=== PATIENT | female | born 1975 | race Caucasian/White ===

== ENCOUNTER 2020-08-12 10:55 | Emergency (ER) | payer OTHER ==
[2020-08-12] MEDS ORDERED: PERCOCET 5/325 T1 EA PO (14:44)
[2020-08-12 17:03] LABS: HEMOGLOBIN 16.3 gm/dl (12.3-15.3); RED BLOOD COUNT 5.43 M/UL (4.00-5.10); WHITE BLOOD COUNT 15.8 K/UL (4.5-11.0)
[2020-08-12 17:41] LABS: BUN/CREATININE RATIO 20 (0-10)
== END 2020-08-12 19:40 | disposition home or self-care (01) ==
LOC: ER1 10:55
PROVIDERS: Family Medicine
DX: M54.5 Low back pain (principal); E11.9 Type 2 diabetes mellitus without complications; Z88.0 Allergy status to penicillin; E03.9 Hypothyroidism, unspecified; Z91.018 Allergy to other foods; W19.XXXA Unspecified fall, initial encounter
CPT/HCPCS: 72131; 80053; 82962; 83690; 85025; 96372; 96374; 99284; J2270; J2550; Q9967

== ENCOUNTER 2020-11-07 18:47 | Emergency (ER) | payer OTHER ==
[~2020-11-07 18:47] MED LIST: PERCOCET 5/325 T1 EA PO
[2020-11-07 20:22] LABS: HEMOGLOBIN 14.4 gm/dl (12.3-15.3); RED BLOOD COUNT 4.81 M/UL (4.00-5.10); WHITE BLOOD COUNT 11.3 K/UL (4.5-11.0)
[2020-11-07 20:44] LABS: BUN/CREATININE RATIO 17 (0-10)
== END 2020-11-08 01:25 | disposition home or self-care (01) ==
LOC: ER1 18:47
PROVIDERS: Physician Assistant
DX: I95.9 Hypotension, unspecified (principal); E87.6 Hypokalemia; E11.9 Type 2 diabetes mellitus without complications; Z90.710 Acquired absence of both cervix and uterus; Z90.49 Acquired absence of other specified parts of digestive tract; Z88.0 Allergy status to penicillin; Z79.4 Long term (current) use of insulin
CPT/HCPCS: 70450; 71045; 80053; 81001; 82550; 82553; 82962; 83874; 84484; 85025; 87086; 93005; 99284

== ENCOUNTER 2020-11-21 17:28 | Emergency (ER) | payer OTHER ==
[2020-11-21 18:54] LABS: HEMOGLOBIN 17.4 gm/dl (12.3-15.3); RED BLOOD COUNT 5.76 M/UL (4.00-5.10); WHITE BLOOD COUNT 10.5 K/UL (4.5-11.0)
[2020-11-21 19:10] LABS: BUN/CREATININE RATIO 21 (0-10)
[2020-11-22] MEDS ORDERED: ECHOCARDIOGRAM (02:35)
[2020-11-22] MEDS ORDERED: Holter Monitor (02:35)
== END 2020-11-22 02:55 | disposition home or self-care (01) ==
LOC: ER1 17:28
PROVIDERS: Emergency Medicine
DX: R07.89 Other chest pain (principal); R55 Syncope and collapse; Z88.0 Allergy status to penicillin; F17.200 Nicotine dependence, unspecified, uncomplicated
CPT/HCPCS: 71045; 80053; 80307; 81001; 82550; 82553; 83690; 83874; 84484; 84703; 85025; 85379; 93005; 99285; J7030; Q9967

== ENCOUNTER → 2020-11-28 | Outpatient (CLI) | payer OTHER ==
[~2020-11-28] MED LIST changes: +ECHOCARDIOGRAM; +Holter Monitor
[2020-11-28 12:25] LABS: RED BLOOD COUNT 5.11 M/UL (4.00-5.10); WHITE BLOOD COUNT 10.1 K/UL (4.5-11.0)
[2020-11-28 12:26] LABS: HEMOGLOBIN 15.3 gm/dl (12.3-15.3)
[2020-11-28 12:56] LABS: BUN/CREATININE RATIO 18 (0-10)
[2020-11-29 08:13] LABS: THYROXINE (T4) 11.1 ug/dL (4.5-12.0)
[2020-11-29 10:14] LABS: CREATININE, URINE 55.6 mg/dL (Not Estab.)
== END ==
LOC: LAB 10:17
PROVIDERS: Nurse Practitioner Family
DX: E11.9 Type 2 diabetes mellitus without complications (principal); E87.6 Hypokalemia; R55 Syncope and collapse; R31.9 Hematuria, unspecified
CPT/HCPCS: 36415; 80053; 80061; 81001; 82043; 82570; 83036; 84436; 84443; 84480; 85025

== ENCOUNTER → 2021-01-25 | Outpatient (CLI) | payer OTHER | LOC: EXRD 10:42 | DX: R05 Cough (principal); R50.9 Fever, unspecified | CPT/HCPCS: 71046 ==

== ENCOUNTER 2021-01-26 07:57 | Emergency (ER) | payer OTHER ==
[2021-01-26 08:27] LABS: HEMOGLOBIN 16.4 gm/dl (12.3-15.3); RED BLOOD COUNT 5.56 M/UL (4.00-5.10); WHITE BLOOD COUNT 9.4 K/UL (4.5-11.0)
[2021-01-26 08:53] LABS: BUN/CREATININE RATIO 22 (0-10)
== END 2021-01-26 09:55 | disposition home or self-care (01) ==
LOC: ER1 07:57
PROVIDERS: Student in an Organized Health Care Education/Training Program
DX: F41.9 Anxiety disorder, unspecified (principal); E11.9 Type 2 diabetes mellitus without complications; Z90.49 Acquired absence of other specified parts of digestive tract; Z79.4 Long term (current) use of insulin; Z79.899 Other long term (current) drug therapy; Z20.822 Contact with and (suspected) exposure to COVID-19
CPT/HCPCS: 80053; 82550; 82553; 83690; 83874; 84439; 84443; 84484; 84702; 85025; 93005; 96374; 96375; 99283; G0480; J1885; J2405; U0002

== ENCOUNTER → 2021-05-16 | Outpatient (CLI) | payer OTHER ==
[2021-05-16 16:09] LABS: HEMOGLOBIN 14.6 gm/dl (12.3-15.3); RED BLOOD COUNT 5.06 M/UL (4.00-5.10); WHITE BLOOD COUNT 13.6 K/UL (4.5-11.0)
[2021-05-16 16:40] LABS: BUN/CREATININE RATIO 28 (0-10)
[2021-05-17 09:14] LABS: VITAMIN D, 25-HYDROXY 16.2 ng/mL (30.0-100.0)
[2021-05-18 00:09] LABS: THYROXINE (T4) 8.8 ug/dL (4.5-12.0)
== END ==
LOC: LAB 15:29
PROVIDERS: Nurse Practitioner Family
DX: E11.9 Type 2 diabetes mellitus without complications (principal); E03.9 Hypothyroidism, unspecified; I10 Essential (primary) hypertension; R53.83 Other fatigue
CPT/HCPCS: 36415; 80053; 80061; 81001; 83036; 84436; 84439; 84443; 84480; 85025

== ENCOUNTER → 2021-08-29 | Outpatient (CLI) | payer OTHER ==
[~2021-08-29] MED LIST changes: +CLEOCIN HCL300 MG PO; +MOBIC15 MG PO
== END ==
LOC: KOH-I 08:30
DX: M84.471A Pathological fracture, right ankle, initial encounter for fracture (principal); M89.8X7 Other specified disorders of bone, ankle and foot
CPT/HCPCS: 73700

== ENCOUNTER → 2021-09-25 | Outpatient (CLI) | payer OTHER | LOC: KOH-I 14:56 | DX: Z01.810 Encounter for preprocedural cardiovascular examination (principal) | CPT/HCPCS: 93926 ==

== ENCOUNTER → 2021-10-01 | Outpatient (CLI) | payer OTHER ==
[~2021-10-01] MED LIST changes: +CRESTOR40 MG PO; +ECOTRIN81 MG PO; +FARXIGA5 MG PO; +LANTUS; +LEVOTHYROXINE100 MC2 PO; +LISINOPRIL2.5 MG PO; +METFORMIN HCL1000 MG PO; +PLAVIX75 MG PO; +VITAMIN D31250 MCG PO
[2021-10-01 13:25] LABS: RED BLOOD COUNT 4.85 M/UL (4.00-5.10); WHITE BLOOD COUNT 7.1 K/UL (4.5-11.0)
[2021-10-01 13:58] LABS: BUN/CREATININE RATIO 20 (0-10)
== END ==
LOC: OPSV2 11:59
PROVIDERS: Podiatrist Foot & Ankle Surgery
DX: Z01.818 Encounter for other preprocedural examination (principal); Z88.0 Allergy status to penicillin; Z20.822 Contact with and (suspected) exposure to COVID-19
CPT/HCPCS: 80048; 83036; 85027; 93005

== ENCOUNTER → 2021-11-26 | Outpatient (CLI) | payer OTHER | LOC: KOH-I 09:43 | DX: M79.671 Pain in right foot (principal) | CPT/HCPCS: 73630 ==

== ENCOUNTER 2022-01-30 04:07 | Observation (INO) | payer OTHER ==
[~2022-01-30] VITALS: Ht 165.1 cm; Wt 100.7 kg
[~2022-01-30 04:07] MED LIST changes: +CRESTOR20 MG PO; -CRESTOR40 MG PO; -LANTUS; +LANTUS SOL100 UNIT/1 SQ
[2022-01-30 04:43] LABS: HEMOGLOBIN 15.5 gm/dl (12.3-15.3); RED BLOOD COUNT 5.35 M/UL (4.00-5.10); WHITE BLOOD COUNT 12.5 K/UL (4.5-11.0)
[2022-01-30 05:03] LABS: BUN/CREATININE RATIO 20 (0-10)
[2022-01-30] MEDS ORDERED: BUSPIRONE HCL5 MG PO (09:40)
[2022-01-30] MEDS ORDERED: JARDIANCE10 MG PO (09:41)
[2022-01-30] MEDS ORDERED: CETIRIZINE HCL10 MG PO (09:41)
[2022-01-30] MEDS ORDERED: NOVOLOG FL100 UNIT/1 SQ (09:42)
[2022-01-30] MEDS ORDERED: FAMOTIDINE20 MG PO (09:43)
[2022-01-30] MEDS ORDERED: PROZAC20 MG PO (09:44)
[2022-01-30] MEDS ORDERED: PROVENTIL HFA6.7 GM INH (09:45)
[2022-01-30] MEDS ORDERED: STOOL SOFTENER100 MG PO (09:47)
[2022-01-30] MEDS ORDERED: WOMEN'S DAILY1 EAC1 PO (09:48)
[2022-01-30] MEDS ORDERED: BENADRYL25 MG PO (09:49)
[2022-01-30] MEDS ORDERED: RANEXA500 MG PO (18:29)
== END 2022-01-30 19:46 | disposition home or self-care (01) ==
LOC: ER1 04:07 → CDU 05:20 → MED SURG 4 10:35
PROVIDERS: ADMIT Internal Medicine
DX: R07.89 Other chest pain (principal); I16.0 Hypertensive urgency; R55 Syncope and collapse; I25.10 Atherosclerotic heart disease of native coronary artery without angina pectoris; I10 Essential (primary) hypertension; E78.5 Hyperlipidemia, unspecified; E11.9 Type 2 diabetes mellitus without complications; E89.0 Postprocedural hypothyroidism; E66.01 Morbid (severe) obesity due to excess calories; Z68.36 Body mass index [BMI] 36.0-36.9, adult; Z87.891 Personal history of nicotine dependence; Z79.82 Long term (current) use of aspirin; Z79.02 Long term (current) use of antithrombotics/antiplatelets; Z95.5 Presence of coronary angioplasty implant and graft; Z88.0 Allergy status to penicillin; Z91.09 Other allergy status, other than to drugs and biological substances; Z79.4 Long term (current) use of insulin; Z79.84 Long term (current) use of oral hypoglycemic drugs; Z79.890 Hormone replacement therapy; Z79.899 Other long term (current) drug therapy
CPT/HCPCS: 71045; 80053; 82550; 82553; 82962; 84484; 85025; 93005; 96374; 99285; G0378; J2405

== ENCOUNTER → 2022-02-24 | Outpatient (CLI) | payer OTHER ==
[~2022-02-24] MED LIST changes: +BENADRYL25 MG PO; +BUSPIRONE HCL5 MG PO; +CETIRIZINE HCL10 MG PO; +FAMOTIDINE20 MG PO; +JARDIANCE10 MG PO; +NOVOLOG FL100 UNIT/1 SQ; +PROVENTIL HFA6.7 GM INH; +PROZAC20 MG PO; +RANEXA500 MG PO; +STOOL SOFTENER100 MG PO; +WOMEN'S DAILY1 EAC1 PO
== END ==
LOC: HEART 5 13:58
DX: R55 Syncope and collapse (principal)